=== PATIENT | male | born 1995 | race Caucasian/White ===

== ENCOUNTER 2018-03-11 01:30 | Emergency (ER) | payer SELFPAY ==
[~2018-03-11] VITALS: Wt 59.9 kg
[2018-03-11] MEDS ORDERED: LIDOCAINE 1% (MPF) 5 ML VIAL INJ ONE (02:30)
[2018-03-11] MEDS ORDERED: IBUP800T48 PO (02:55)
[2018-03-11] MEDS ORDERED: IBUPROFEN 800 MG TAB PO ONE (03:00)
[2018-03-11 03:32] VITALS: BP 112/70; PULSE 82; RESP 18
--- NOTE | 2018-03-11 04:39 | ERD ---
ER Documentation Chief Complaint Chief Complaint LAC TO LEFT UPPER LIP HPI 23-year-old male presenting with a laceration to the left upper lip. Patient was doing a flip when he hit his lip on a table. He denies any loose teeth. There is no loss of consciousness. Patient has not use any medication and has not taken any oral medications for pain. Denies any jaw or dental toe pain. Denies other medical problems. NKDA. Surgical history denies. Social history denies ROS All systems reviewed and are negative except as per history of present illness. Medications Home Meds Active Scripts Ibuprofen* (Motrin*) 800 Mg Tab, 800 MG PO Q6, #30 TAB Prov:KEVIN NAM PA-C 03/11/18 Allergies Allergies: Coded Allergies: No Known Allergy (Unverified , 03/11/18) PMhx/Soc Medical and Surgical Hx: pt denies Medical Hx Anesthesia Reaction: No Hx Alcohol Use: Yes (socially) Hx Substance Use: Yes (marijuana) Hx Tobacco Use: Yes (socially) Smoking Status: Light tobacco smoker FmHx Family History: No diabetes, No coronary disease, No other Physical Exam Vitals Vital Signs Date Temp Pulse Resp B/P (MAP) Pulse Ox O2 O2 Flow FiO2 Time Delivery Rate 03/11/18 98.0 82 18 112/70 99 Room Air 03:32 (84) 03/11/18 96.0 109 18 132/85 99 01:31 (101) Physical Exam GENERAL: The patient is well-appearing, well-nourished, in no acute distress HEENT: Atraumatic. Conjunctivae are pink. Pupils equal, round, and reactive to light. There is no scleral icterus. Tympanic membranes clear bilaterally. Oropharynx clear. No loose dentition CHEST: Clear to auscultation bilaterally. There are no rales, wheezes or rhonchi. HEART: Regular rate and rhythm. No murmurs, clicks, rubs or gallops. No S3 or S4. NEUROLOGIC: Alert and oriented. Cranial nerves II through XII intact. Motor strength in all 4 extremities with 5 out of 5 strength. Sensation grossly intact. Normal speech and gait. Babinski negative. DTR 2+ throughout. SKIN: Flap laceration noted of the left upper lip with no involvement of the vermilion border. Results 24 hrs Current Medications Medications Dose Sig/Dejah Start Time Status Last (Trade) Ordered Route PRN Stop Time Admin Dose Reason Admin Lidocaine 5 ml ONCE ONCE 03/11/18 DC (Xylocaine INJ 02:30 1% (Mpf)) 03/11/18 02:31 Ibuprofen 800 mg ONCE ONCE 03/11/18 DC 03/11/18 (Motrin) PO 03:00 03:16 03/11/18 03:01 Procedures/MDM Laceration Repair by me: Anesthesia: 1% lidocaine locally Location: Left upper lip Tendon/Joint/Nerves: No injury Foreign body: None detected after copious irrigation and exploration Technique: 3 5-0 Vicryl simple Interrupted Sutures Complexity: No subcutaneous sutures/mucosal repair/edge excision Post Closure Length: 1 cm Patient's bleeding was easily controlled in the department and there is no indication of anemia. No evidence of compartment syndrome, neurologic injury, vascular injury, open joint, tendon laceration, or foreign body. Patient is appropriate for outpatient follow up. 48 hour wound check. Scar minimization instructions given. MDM: 23-year-old male presenting with laceration of left upper lip. Patient had 3 such sutures placed without complication. I have low suspicion for intracranial hemorrhage or neuro deficit. I have low suspicion for dental injury or loose tooth. Patient had sutures placed in the ER. Patient is recomm ended to follow-up for suture removal and suture check. Patient is told symptoms change or worsen to immediately return to the ER. All questions answered at discharge Departure Diagnosis: Primary Impression: Laceration Condition: Stable Patient Instructions: Laceration, Face (Suture Or Tape) Referrals: [facility] YOU HAVE RECEIVED A MEDICAL SCREENING EXAM AND THE RESULTS INDICATE THAT YOU DO NOT HAVE A CONDITION THAT REQUIRES URGENT TREATMENT IN THE EMERGENCY DEPARTMENT. FURTHER EVALUATION AND TREATMENT OF YOUR CONDITION CAN WAIT UNTIL YOU ARE SEEN IN YOUR DOCTORS OFFICE WITHIN THE NEXT 1-2 DAYS. IT IS YOUR RESPONSIBILITY TO MAKE AN APPOINTMENT FOR FOLOW-UP CARE. IF YOU HAVE A PRIMARY DOCTOR --you should call your primary doctor and schedule an appointment IF YOU DO NOT HAVE A PRIMARY DOCTOR YOU CAN CALL OUR PHYSICIAN REFERRAL HOTLINE AT IF YOU CAN NOT AFFORD TO SEE A PHYSICIAN YOU CAN CHOSE FROM THE FOLLOWING [facility] [address] [facility]. [facility] [address] [facility]. [facility] [address] [facility]. [facility] [address] [facility]. [facility] [address] [facility]. [facility]. [address] Additional Instructions: FOLLOW UP WITH YOUR PRIMARY CARE PHYSICIAN TOMORROW.Return to this facility if you are not improving as expected. KEVIN NAM PA-C Mar 11, 2018 04:39
== END 2018-03-11 03:33 | disposition home or self-care (01) ==
LOC: FTE 01:30
DX: S01.511A Laceration without foreign body of lip, initial encounter (principal); F17.210 Nicotine dependence, cigarettes, uncomplicated; W22.03XA Walked into furniture, initial encounter; Y92.9 Unspecified place or not applicable